=== PATIENT | male | born 1975 | race African-American/Black ===

== ENCOUNTER 2020-04-08 16:26 | Emergency (ER) | payer SELFPAY ==
[~2020-04-08] VITALS: Ht 185.4 cm; Wt 97.3 kg
[2020-04-08 16:35] VITALS: BP 140/90
--- NOTE | 2020-04-08 16:54 | PHYS DOC ---
Adult General Chief Complaint Chief Complaint: BURN/SMOKE INHALATION HPI HPI Patient is a 44M presenting the emergency department with a burn to left forearm. Patient states that 2 days ago he was at work using a fryer when he actually spilled some of the hot grease onto the left anterior forearm. Patient states that he has been using a dressing on this but it was not at work and they asked him to come to the emergency department to be evaluated. Patient denies any additional injury and denies any fever chills area. Review of Systems Review of Systems Constitutional: Denies fever or chills [] Eyes: Denies change in visual acuity, redness, or eye pain [] HENT: Denies nasal congestion or sore throat [] Respiratory: Denies cough or shortness of breath [] Cardiovascular: No additional information not addressed in HPI [] GI: Denies abdominal pain, nausea, vomiting, bloody stools or diarrhea [] : Denies dysuria or hematuria [] Musculoskeletal: Denies back pain or joint pain [] Integument: Denies rash or skin lesions [] Neurologic: Denies headache, focal weakness or sensory changes [] Endocrine: Denies polyuria or polydipsia [] All other systems were reviewed and found to be within normal limits, except as documented in this note. Allergies Allergies Allergies Coded Allergies Type Severity Reaction Last Updated Verified No Known Drug Allergies 04/08/20 No Physical Exam Physical Exam Constitutional: Well developed, well nourished, no acute distress, non-toxic appearance. [] HENT: Normocephalic, atraumatic, bilateral external ears normal, oropharynx moist, no oral exudates, nose normal. [] Eyes: PERRLA, EOMI, conjunctiva normal, no discharge. [] Neck: Normal range of motion, no tenderness, supple, no stridor. [] Cardiovascular:Heart rate regular rhythm, no murmur [] Lungs & Thorax: Bilateral breath sounds clear to auscultation [] Abdomen: Bowel sounds normal, soft, no tenderness, no masses, no pulsatile masses. [] Skin: Warm, dry, no erythema, no rash. Approximately 4 x 6 cm area to the left medial forearm just proximal to the wrist with what appears to be superficial second-degree burning with 2 areas of blistering Back: No tenderness, no CVA tenderness. [] Extremities: No tenderness, no cyanosis, no clubbing, ROM intact, no edema. [] Neurologic: Alert and oriented X 3, normal motor function, normal sensory function, no focal deficits noted. [] Psychologic: Affect normal, judgement normal, mood normal. [] EKG EKG [] Radiology/Procedures Radiology/Procedures [] Heart Score Risk Factors: Risk Factors: DM, Current or recent (<one month) smoker, HTN, HLP, family history of CAD, obesity. Risk Scores: Risk Factors: DM, Current or recent (<one month) smoker, HTN, HLP, family history of CAD, obesity. Course & Med Decision Making Course & Med Decision Making Pertinent Labs and Imaging studies reviewed. (See chart for details) 44M presented emergency department with appears to be an old burn to the left anterior forearm. At this time will apply sterile dressing and triple antibiotic treatment and I counseled the patient on the importance of dressing changes. We will provide follow-up and at this time feel the patient can be safely discharged home Dragon Disclaimer Dragon Disclaimer This electronic medical record was generated, in whole or in part, using a voice recognition dictation system. Departure Departure: Impression: Primary Impression: 2nd deg burn arm Disposition: 01 DC HOME SELF CARE/HOMELESS Condition: GOOD Referrals: PCP,NO (PCP) Patient Instructions: Burn Care Additional Instructions: Please call to make an appointment with the Department of Plastic Surgery at [phone] EMERGENCY DEPARTMENT GENERAL DISCHARGE INSTRUCTIONS Thank you for coming to [facility] Emergency Department (ED) today and trusting us with you care. We trust that you had a positive experience in our Emergency Department. If you wish to speak to the department management, you may call the Director at [phone]. YOUR FOLLOW UP INSTRUCTIONS ARE FOLLOWS: 1. Do you have a private Doctor? If you do not have a private doctor, please ask for a resource list of physicians or clinics that may be able to assist you with follow up care. 2. The Emergency Physicain has interpreted your x-rays. The X-Ray specialist will also review them. If there is a change in the findings, you will be notified in 48 hours when at all possible. 3. A lab test or culture has been done, your results will be reviewed and you will be notified if you need a change in treatment. ADDITIONAL INSTRUCTIONS AND INFORMATION: 1. Your care today has been supervised by a physician who is specially trained in emergency care. Many problems require more than one evaluation for a complete diagnosis and treatment. We recommend that you schedule your follow up appointment as recommended to ensure complete treatment of you illness or injury. If you are unable to obtain follow up care and continue to have a problem, or if your condition worsens, we recommend that you return to the ED. 2. We are not able to safely determine your condition over the phone nor are we able to give sound medical advice over the phone. For these safety reasons, if you call for medical advice we will ask you to come to the ED for further evaluation. 3. If you have any questions regarding these discharge instructions please call the ED at [phone]. SAFETY INFORMATION: In the interest of safety, wellness, and injury prevention; we encourage you to wear your sealbelt, if you smoke; quite smoking, and we encourage family to use a protective helmet for bicycling and other sporting events that present an increased risk for head injury. IF YOUR SYMPTOMS WORSEN OR NEW SYMPTOMS DEVELOP, OR YOU HAVE CONCERNS ABOUT YOUR CONDITION; OR IF YOUR CONDITION WORSENS WHILE YOU ARE WAITING FOR YOUR FOLLOW UP APPOINTMENT; EITHER CONTACT YOUR PRIMARY CARE DOCTOR, THE PHYSICIAN WHOSE NAME AND NUMBER YOU WERE GIVEN, OR RETURN TO THE ED IMMEDIATELY. ROSALBA HERNANDEZ MD Apr 08, 2020 16:54
[2020-04-08] MEDS ORDERED: NEOMY/BACITR/POLYMYXIN OINT PACKET. TP ONE ×2 (17:00)
[2020-04-08] MEDS ORDERED: BACI28OI5 TP (17:06)
== END 2020-04-08 17:06 | disposition home or self-care (01) ==
LOC: ER 16:26
DX: T22.212A Burn of second degree of left forearm, initial encounter (principal); X10.2XXA Contact with fats and cooking oils, initial encounter; Y93.89 Activity, other specified; Y92.89 Other specified places as the place of occurrence of the external cause; Y99.8 Other external cause status
CPT/HCPCS: 16020; 99282

== ENCOUNTER 2020-06-24 09:13 | Emergency (ER) | payer SELFPAY ==
[~2020-06-24] VITALS: Ht 188 cm; Wt 98.0 kg
[~2020-06-24 09:13] MED LIST: BACI28OI5 TP
--- NOTE | 2020-06-24 09:50 | PHYS DOC ---
Past History Past Medical History: Hypothyroid Past Surgical History: Other Additional Past Surgical Histo: right femur fx repair with nina; right wrist fx repair with plating Alcohol Use: Occasionally Additional Alcohol Information: approx 14 glasses vodka/soda per week General Adult EDM: Chief Complaint: HAND PROBLEM HPI: HPI: Patient is a 44-year-old male coming in for right hand pain and swelling. Yesterday was at work and was punching a bag of laundry, trying to work out. He states he has had pain and swelling since. Has a prior surgery with a plate due to an injury years ago. Patient is right-handed. Denies any paresthesias or numbness. Patient is atelectasis been well. No open wounds or bleeding. Review of Systems: Review of Systems: All other systems within normal limits except for as noted in the HPI Allergies: Allergies: Allergies Coded Allergies Type Severity Reaction Last Updated Verified No Known Drug Allergies 06/24/20 No Physical Exam: PE: Constitutional: Well developed, well nourished, no acute distress, non-toxic appearance. [] HENT: Normocephalic, atraumatic, bilateral external ears normal, nose normal. [] Eyes: PERRLA, conjunctiva normal, no discharge. [] Neck: No rigidity, supple, no stridor. [] Cardiovascular: Regular rate and rhythm, brisk cap refill [] Lungs & Thorax: Non labored symmetric respirations, no tachypnea or respiratory distress [] Abdomen: Soft, nondistended. Skin: Warm, dry, no erythema, no rash. [] Back: Unremarkable Extremities: No deformities, range of motion grossly intact, no lower extremity edema. Right hand exam:. Swelling to the dorsum of the hand, worse over third and fourth metacarpals. Range of motion intact distal without any obvious deformity. Sensation intact distal to injury. [] Neurologic: Alert and oriented X 3, no focal deficits noted. [] Psychologic: Affect normal, judgement normal, mood normal. [] Current Patient Data: Vital Signs: Vital Signs Date Time Temp Pulse Resp B/P (MAP) Pulse Ox O2 Delivery O2 Flow Rate FiO2 06/24/20 09:15 98.1 89 18 144/91 (108) 97 Room Air EKG: EKG: [] Radiology/Procedures: Radiology/Procedures: XR HAND_RIGHT 3 VIEWS DATE: 06/24/2020 9:30 AM INDICATION: pain, swelling COMPARISON: None. FINDINGS: Postsurgical changes of wrist arthrodesis with ORIF extending from the distal radius, across the carpal bones, and to the base of the third metacarpal with multifocal osseous fusion. Surgical hardware is intact. No periscrew lucency. No acute fracture.. IMPRESSION: 1. No acute fracture. 2. Wrist arthrodesis with intact surgical hardware. [] Heart Score: C/O Chest Pain: No Risk Factors: Risk Factors: DM, Current or recent (<one month) smoker, HTN, HLP, family history of CAD, obesity. Risk Scores: Score 0 - 3: 2.5% MACE over next 6 weeks - Discharge Home Score 4 - 6: 20.3% MACE over next 6 weeks - Admit for Clinical Observation Score 7 - 10: 72.7% MACE over next 6 weeks - Early Invasive Strategies Course & Med Decision Making: Course & Med Decision Making Pertinent Labs and Imaging studies reviewed. (See chart for details) [] Jose Disclaimer: Jose Disclaimer: This electronic medical record was generated, in whole or in part, using a voice recognition dictation system. Departure Departure: Impression: Primary Impression: Contusion of right hand Disposition: LEFT AWOL/ELOPED Condition: STABLE Referrals: PCP,NIKKI (PCP) [facility] Patient Instructions: RICE - Routine Care for Injuries BRENDA ZHAO MD June 24, 2020 09:50
--- NOTE | 2020-06-24 09:52 | RAD ---
XR HAND_RIGHT 3 VIEWS DATE: 06/24/2020 9:30 AM INDICATION: pain, swelling COMPARISON: None. FINDINGS: Postsurgical changes of wrist arthrodesis with ORIF extending from the distal radius, across the carp al bones, and to the base of the third metacarpal with multifocal osseous fusion. Surgical hardware i s intact. No periscrew lucency. No acute fracture.. IMPRESSION: 1. No acute fracture. 2. Wrist arthrodesis with intact surgical hardware. Electronically signed by: Ulices Lewis MD (06/24/2020 9:49 AM) [id number]
[2020-06-24 10:15] VITALS: BP 148/92
== END 2020-06-24 10:15 | disposition left against medical advice (07) ==
LOC: ER 09:13
DX: S60.221A Contusion of right hand, initial encounter (principal); W22.09XA Striking against other stationary object, initial encounter; Y93.71 Activity, boxing; Y92.89 Other specified places as the place of occurrence of the external cause; Y99.8 Other external cause status
CPT/HCPCS: 73130; 99283-25